=== PATIENT | male | born 1990 ===

== ENCOUNTER 2018-07-02 13:19 | Emergency (ER) | payer OTHER ==
[2018-07-02 13:47] VITALS: BP 116/80; PULSE 64; RESP 16; TEMP 98.1; O2SAT 98
[2018-07-02] MEDS ORDERED: Tdap Vaccine 0.5 ml Vial (10-64 yrs) IM ONE ×2 (14:56→16:00)
--- NOTE | 2018-07-02 15:30 | ED PDOC ---
HPI: Wound Care - HPI Time Seen by Provider: 07/02/18 14:44 Chief Complaint (Nursing): Lower Extremity Problem/Injury Chief Complaint (Provider): Lower Extremity Problem/Injury History Per: Patient Exam Limitations: no limitations Onset/Duration Of Symptoms: Sudden Onset Current Symptoms Are (Timing): Still Present Location Of Injury: Right: Foot Quality Of Symptoms: Painful (minimal) Additional Complaint(s): 27 year old male with no significant medical history presents to the ED for evaluation of a puncture wound to the right foot after stepping on a izzy nail. Patient states he was at work when he accidentally stepped on a piece of wood with a izzy nail sticking out that then punctured through his shoe. He did not experienced significant bleeding and cleansed the wound with hydrogen peroxide. Patient reports minimal pain. He is not up to date with Tetanus vaccine. PMD: none provided Past Medical History Reviewed: Historical Data, Nursing Documentation, Vital Signs Vital Signs: Last Vital Signs Temp 98.1 F 07/02/18 13:44 Pulse 64 07/02/18 13:44 Resp 16 07/02/18 13:44 BP 116/80 07/02/18 13:44 Pulse Ox 98 07/02/18 13:44 Primary Care Provider: FAMILY PROVIDER,NO - Medical History PMH: No Chronic Diseases - Surgical History Surgical History: No Surg Hx - Family History Family History: States: Unknown Family Hx - Home Medications Home Medications: Ambulatory Orders Medication Instructions Recorded Ciprofloxacin 500 mg PO BID 7 Days rust..rec 07/02/18 Ibuprofen [Motrin Tab] 600 mg PO Q6 PRN 7 Days tab 07/02/18 - Allergies Allergies/Adverse Reactions: Allergies Allergy/AdvReac Type Severity Reaction Status Date / Time No Known Allergies Allergy Verified 07/02/18 13:43 Review of Systems ROS Statement: Except As Marked, All Systems Reviewed And Found Negative Musculoskeletal: Positive for: Foot Pain (left foot pain and puncture wound) Physical Exam - Reviewed Nursing Documentation Reviewed: Yes Vital Signs Reviewed: Yes - Physical Exam Appears: Positive for: No Acute Distress Extremity: Positive for: Normal ROM (normal flexion and extension to rigth ankle and all toes), Other (tiny puncture wound to the plantar surface of the rigth foot without active bleeding, ecchymosis or nodules) Neurological/Psych: Positive for: Awake, Alert, Normal Tone, Oriented (x 3). Negative for: Motor/Sensory Deficits - ECG O2 Sat by Pulse Oximetry: 98 (RA) Pulse Ox Interpretation: Normal Medical Decision Making Medical Decision Makin:56 MDM: Tetanus vaccine and Cipro 500 gm PO x 1 for pseudomonas prophylaxis Scribe Attestation: Documented by Zoe Chisholm, acting as a scribe for Valencia Connell PA-C Provider Scribe Attestation: All medical record entries made by the Scribe were at my direction and personally dictated by me. I have reviewed the chart and agree that the record accurately reflects my personal performance of the history, physical exam, medical decision making, and the department course for this patient. I have also personally directed, reviewed, and agree with the discharge instructions and disposition. Disposition - Clinical Impression Clinical Impression: Foot injury - Disposition Referrals: [facility] [Outside] [facility] [Outside] Disposition: Routine/Home Disposition Time: 16:26 Condition: STABLE Additional Instructions: Take full course of antibiotics as prescribed to prevent infection. Return to ER if you develop redness, increased swelling and pain or pus drainage/fevers. Take Tylenol or Ibuprofen for pain. Prescriptions: Ciprofloxacin 500 mg PO BID 7 Days [email or web address] Ibuprofen [Motrin Tab] 600 mg PO Q6 PRN 7 Days tab PRN Reason: Pain, Moderate (4-7) Forms: [employer] ([place]ar[place]anda), [facility] ED School/Work Excuse Print Language: BULGARIAN
== END 2018-07-02 16:26 | disposition home or self-care (01) ==
LOC: H.ER 13:19
DX: S99.921A Unspecified injury of right foot, initial encounter (principal); W45.0XXA Nail entering through skin, initial encounter; Z23 Encounter for immunization